=== PATIENT | female | born 1945 | race African-American/Black ===

== ENCOUNTER 2017-08-28 17:36 | Inpatient (IN) | END 2017-09-04 13:15 | disposition left against medical advice (07) | DRG 682 ==

== ENCOUNTER 2017-09-10 02:06 | Inpatient (IN) | END 2017-09-12 19:08 | disposition home or self-care (01) | DRG 286 ==

== ENCOUNTER 2017-11-03 23:19 | Emergency (ER) | END 2017-11-04 01:26 | disposition left against medical advice (07) ==

== ENCOUNTER 2017-12-01 11:32 | Inpatient (IN) | END 2017-12-03 16:55 | disposition home health service (06) | DRG 291 ==

== ENCOUNTER 2017-12-17 12:24 | Emergency (ER) | END 2017-12-17 16:49 | disposition left against medical advice (07) ==

== ENCOUNTER 2017-12-17 23:25 | Inpatient (IN) | END 2017-12-23 21:35 | disposition home health service (06) | DRG 291 ==

== ENCOUNTER 2017-12-28 12:12 | Inpatient (IN) | END 2017-12-31 16:48 | disposition home health service (06) | DRG 291 ==

== ENCOUNTER 2018-01-06 15:13 | Inpatient (IN) | END 2018-01-14 17:36 | disposition home health service (06) | DRG 291 ==

== ENCOUNTER 2018-02-01 17:11 | Inpatient (IN) | END 2018-02-07 21:10 | disposition home or self-care (01) | DRG 291 ==

== ENCOUNTER 2018-04-19 17:00 | Observation (INO) | END 2018-04-22 17:41 | disposition home or self-care (01) ==